=== PATIENT | male | born 1965 | race Caucasian/White ===

== ENCOUNTER 2019-04-20 15:02 | Emergency (ER) | payer SELFPAY ==
[~2019-04-20] VITALS: Ht 172.7 cm; Wt 87.5 kg
[2019-04-20 15:19] VITALS: Ht 172.7 cm; Wt 87.5 kg
[2019-04-20 15:54] LABS: BASOPHIL % 0.4 % (0-2); PLATELET COUNT 190 x10^3mcL (130-400)
[2019-04-20 16:18] LABS: CALCIUM 9.8 mg/dL (8.5-10.1); CARBON DIOXIDE 24.6 mmol/L (21-32); CHLORIDE SERUM 98 mmol/L (98-107); CREATININE SERUM 0.9 mg/dL (0.7-1.3); GFR1 > 60 mL/min; GLUCOSE SERUM 435 mg/dL (74-106); SODIUM SERUM 136 mmol/L (136-145)
[2019-04-20 16:24] LABS: ALBUMIN 4.1 g/dL (3.4-5.0); ALKALINE PHOSPHATASE 154 U/L (46-116); ALT/SGPT 49 U/L (16-63); AST/SGOT 23 U/L (15-37); BILIRUBIN TOTAL 0.5 mg/dL (0.20-1.00); TOTAL PROTEIN, SERUM 7.9 g/dL (6.4-8.2)
[2019-04-20 18:38] VITALS: BP 141/86
== END 2019-04-20 18:38 | disposition home or self-care (01) ==
LOC: ED 15:02
PROVIDERS: Emergency Medicine
DX: E11.65 Type 2 diabetes mellitus with hyperglycemia (principal)
CPT/HCPCS: 82962; J7030